=== PATIENT | female | born 1955 | race Caucasian/White ===

== ENCOUNTER 2019-11-30 22:15 | Emergency (ER) | payer MEDICARE ==
[~2019-11-30] VITALS: Ht 166.4 cm; Wt 59.1 kg
[2019-11-30 23:48] LABS: BASOPHILS % (AUTO) 0.2 % (0-1); EOSINOPHILS # (AUTO) 0.1 X10'3 (0-0.9); EOSINOPHILS % (AUTO) 1.5 % (0-6); HEMATOCRIT 41.9 % (35.0-45.0); HEMOGLOBIN 14.2 g/dl (12.0-16.0); LYMPHOCYTES # (AUTO) 2.4 X10'3 (1.1-4.8); LYMPHOCYTES % (AUTO) 26.7 % (21-51); MEAN CORPUSCULAR HEMOGLOBIN 30.7 PG (27.0-31.0); MEAN CORPUSCULAR HGB CONC 33.8 g/dL (33.0-36.5); MEAN CORPUSCULAR VOLUME 90.7 FL (78-98); MEAN PLATELET VOLUME 9.9 FL (7.4-10.4); MONOCYTES # (AUTO) 0.6 X10'3 (0-0.9); MONOCYTES % (AUTO) 6.9 % (2-12); NEUTROPHILS # (AUTO) 5.8 X10'3 (1.8-7.7); NEUTROPHILS % (AUTO) 64.7 % (42-75); PLATELET COUNT 223 X10'3 (140-440); RED BLOOD COUNT 4.61 X10'6 (4.20-5.60); RED CELL DISTRIBUTION WIDTH 14.4 % (11.5-14.5)
[2019-11-30 23:50] LABS: ALANINE AMINOTRANSFERASE 32 U/L (12-78); ALBUMIN 3.7 G/DL (3.4-5.0); ALBUMIN/GLOBULIN RATIO 1.2 (1.1-1.5); ALKALINE PHOSPHATASE 82 IU/L (46-116); ANION GAP 10 (8-16); ASPARTATE AMINO TRANSFERASE 17 U/L (10-37); BILIRUBIN,TOTAL 0.2 MG/DL (0.1-1.0); BLOOD UREA NITROGEN 19 MG/DL (7-18); BUN/CREATININE RATIO 16.5 (6.6-38.0); CALCIUM 8.7 MG/DL (8.5-10.1); CHLORIDE 108 MMOL/L (99-107); CREATININE 1.15 MG/DL (0.40-0.90); GLUCOSE 94 MG/DL (70-104); POTASSIUM 3.9 MMOL/L (3.5-5.1); SODIUM 145 MMOL/L (135-145); TOTAL CARBON DIOXIDE 26.8 MMOL/L (24-32); TOTAL PROTEIN 6.8 G/DL (6.4-8.2); eGFR 47 ML/MIN
[2019-12-01 00:33] VITALS: BP 127/72
== END 2019-12-01 00:35 | disposition home or self-care (01) ==
LOC: ER 22:16
DX: R07.89 Other chest pain (principal); Z88.1 Allergy status to other antibiotic agents
CPT/HCPCS: 36415; 71045; 80053; 84484; 85025; 93005; 99284

== ENCOUNTER 2020-09-18 08:11 | Emergency (ER) | payer MEDICARE ==
[~2020-09-18] VITALS: Ht 165.1 cm; Wt 56.4 kg
[2020-09-18] MEDS ORDERED: morphine 4 MG/ML inj SYRINge IV ONE (08:45)
[2020-09-18] MEDS ORDERED: normal saline 1000ML IV soln IVB ONE (08:45)
[2020-09-18] MEDS ORDERED: propofol 10mg/ml 20ml vial IV ONE (08:45)
[2020-09-18] MEDS ORDERED: ondansetron/PF 4mg/2ml inj IV ONE (08:45)
--- NOTE | 2020-09-18 09:44 | NUR ---
100 MG PROPOFOL GIVEN BY DR BROOKS VIA IVP FOR MODERATE SEDATION. Addendum: 09/18/20 at 1003 by RINKU CORRECTION: 70 MG PROPOFOL IVP GIVEN BY DR BROOKS.
[2020-09-18] MEDS ORDERED: HYDR-4383 PO (10:22)
[2020-09-18 11:07] VITALS: BP 116/78
== END 2020-09-18 11:09 | disposition home or self-care (01) ==
LOC: ER 08:11
DX: S52.502A Unspecified fracture of the lower end of left radius, initial encounter for closed fracture (principal); S50.02XA Contusion of left elbow, initial encounter; M54.6 Pain in thoracic spine; Z79.2 Long term (current) use of antibiotics; Z79.899 Other long term (current) drug therapy; W19.XXXA Unspecified fall, initial encounter; Y93.89 Activity, other specified; Y92.89 Other specified places as the place of occurrence of the external cause; Y99.8 Other external cause status
CPT/HCPCS: 25605; 72070; 73100; 73110; 94799; 96361; 96374; 96375; 99152; 99285; J2270; J2405; J7030; 99151

== ENCOUNTER 2020-09-30 11:12 | Day surgery (SDC) | payer MEDICARE ==
[~2020-09-30] VITALS: Ht 165.1 cm; Wt 56.3 kg
[2020-09-30] VITALS (8 sets, daily range): BP systolic 107–130; BP diastolic 54–89
[~2020-09-30 11:12] MED LIST: BUPR300T86 PO; DICL-212 PO; ESCI20TA45 PO; MULT-1085 PO; OMEG1CAP46 PO; OMEP40CA13 PO; VANCOMYCIN INJ 1000 MG in NORMAL SALINE 250ml IV.SOLN IV ONE; cefazolin/dext.iso 2gm/50ml 50 ML IV ONE; famotidine 20mg tablet PO ONE; ringers solution, lacted 1,000 ML IV SCH
[2020-09-30 12:16] LABS: BASOPHILS # (AUTO) 0.1 X10'3 (0-0.2); BASOPHILS % (AUTO) 1.1 % (0-1); EOSINOPHILS # (AUTO) 0.3 X10'3 (0-0.9); LYMPHOCYTES # (AUTO) 1.6 X10'3 (1.1-4.8); MEAN CORPUSCULAR HEMOGLOBIN 30.3 PG (27.0-31.0); MEAN CORPUSCULAR HGB CONC 33.2 g/dL (33.0-36.5); MEAN CORPUSCULAR VOLUME 91.3 FL (78-98); MEAN PLATELET VOLUME 8.9 FL (7.4-10.4); MONOCYTES # (AUTO) 0.4 X10'3 (0-0.9); NEUTROPHILS # (AUTO) 3.2 X10'3 (1.8-7.7); NEUTROPHILS % (AUTO) 57.9 % (42-75); PRE OP HEMATOCRIT 40.6 % (35.0-45.0); PRE OP HEMOGLOBIN 13.5 g/dL (12.0-16.0); PRE OP PLATELET COUNT 248 X10'3 (140-440); RED BLOOD COUNT 4.44 X10'6 (4.20-5.60); RED CELL DISTRIBUTION WIDTH 14.3 % (11.5-14.5)
[2020-09-30 12:32] LABS: ALBUMIN 3.8 G/DL (3.4-5.0); ALBUMIN/GLOBULIN RATIO 1.2 (1.1-1.5); ALKALINE PHOSPHATASE 137 IU/L (46-116); BLOOD UREA NITROGEN 15 MG/DL (7-18); BUN/CREATININE RATIO 13.9 (6.6-38.0); CALCIUM 9.5 MG/DL (8.5-10.1); CHLORIDE 106 MMOL/L (99-107); CREATININE 1.08 MG/DL (0.40-0.90); PRE OP ALT 41 U/L (30-65); PRE OP ANION GAP 8 (8-16); PRE OP AST 27 U/L (10-37); PRE OP BILIRUB, TOTAL 0.5 MG/DL (0.0-1.0); PRE OP GLUCOSE 92 MG/DL (70-104); PRE OP POTASSIUM 4.2 MMOL/L (3.4-5.1); PRE OP SODIUM 141 MMOL/L (135-145); TOTAL CARBON DIOXIDE 27.5 MMOL/L (24-32); eGFR 51 ML/MIN
[2020-09-30] MEDS ORDERED: sevoflurane 250ml liquid IH ONE (13:30)
[2020-09-30] MEDS ORDERED: MIDAZolam 5mg/5ml vial ONE (13:31)
[2020-09-30] MEDS ORDERED: fentaNYL/PF 50MCG/1 ML 2ML syringe ONE (13:31)
[2020-09-30] MEDS ORDERED: ringers solution, lacted 1,000 ML IV SCH (14:20)
[2020-09-30] MEDS ORDERED: meperidine/PF 25mg/ml syringe IV PRN ×3 (14:20)
[2020-09-30] MEDS ORDERED: ondansetron/PF 4mg/2ml inj IV PRN (14:20)
[2020-09-30] MEDS ORDERED: morphine 2 MG/ML inj. syringe IV PRN (14:20)
[2020-09-30] MEDS ORDERED: morphine 4 MG/ML inj SYRINge IV PRN (14:20)
[2020-09-30] MEDS ORDERED: proCHLORperazine 10 MG/2 ml inj IV PRN (14:20)
[2020-09-30] MEDS ORDERED: propofol inj 20 ML IV ONE (14:30)
[2020-09-30] MEDS ORDERED: LIDOcaine 2% (20mg/ml) 5ml vial ONE (14:30)
[2020-09-30] MEDS ORDERED: ondansetron/PF 4mg/2ml inj ONE (14:31)
[2020-09-30] MEDS ORDERED: dexamethasone sod phosphate 4mg/ml inj. ONE (14:36)
--- NOTE | 2020-09-30 14:46 | NUR ---
ARRIVED IN PACU VIA [facility] WITH DR LAWRENCE IN ATTENDANCE AND O2 BEING ADMINISTERED. REPORT RECEIVED. VS STABLE. PT STILL ASLEEP. RESP EASY
--- NOTE | 2020-09-30 15:23 | NUR ---
AWAKE COMFORTABLE. VS STABLE
--- NOTE | 2020-09-30 15:56 | NUR ---
UP ASSISTED WITH DRESSING. STEADY ON FEET. TO CAR VIA W/C WITHOUT INCIDENT. SLING IN PLACE LUE. REVIEWED DISCHARGE WITH PT AND . NO URGE TO VOID BEFORE DISCHARGE
== END 2020-09-30 15:56 | disposition home or self-care (01) ==
LOC: PAS 11:12
PROVIDERS: ATTEND Orthopaedic Surgery
DX: S52.552A Other extraarticular fracture of lower end of left radius, initial encounter for closed fracture (principal); F32.9 Major depressive disorder, single episode, unspecified; K21.9 Gastro-esophageal reflux disease without esophagitis; J45.909 Unspecified asthma, uncomplicated; G89.18 Other acute postprocedural pain; Z98.890 Other specified postprocedural states; Z88.0 Allergy status to penicillin; Z88.1 Allergy status to other antibiotic agents; Z87.891 Personal history of nicotine dependence; Z20.828 Contact with and (suspected) exposure to other viral communicable diseases; Z79.899 Other long term (current) drug therapy; W19.XXXA Unspecified fall, initial encounter; Y93.89 Activity, other specified; Y92.89 Other specified places as the place of occurrence of the external cause; Y99.8 Other external cause status
CPT/HCPCS: 25607; 36415; 64417; 76942; 80053; 85025; 87635; 93005; A6222; C1713; C9803; J1100; J2001; J2250; J2405; J2704; J3010; J3370; J7120; A4618; A6446; A6449; A7000

== ENCOUNTER 2021-04-03 06:18 | Day surgery (SDC) | payer MEDICARE ==
[2021-03-27 14:51] LABS: BASOPHILS # (AUTO) 0.1 X10'3 (0-0.2); BASOPHILS % (AUTO) 0.8 % (0-1); EOSINOPHILS # (AUTO) 0.3 X10'3 (0-0.9); LYMPHOCYTES # (AUTO) 2.1 X10'3 (1.1-4.8); LYMPHOCYTES % (AUTO) 31.2 % (21-51); MEAN CORPUSCULAR HEMOGLOBIN 30.8 PG (27.0-31.0); MEAN CORPUSCULAR HGB CONC 33.3 g/dL (33.0-36.5); MEAN CORPUSCULAR VOLUME 92.5 FL (78-98); MONOCYTES # (AUTO) 0.6 X10'3 (0-0.9); MONOCYTES % (AUTO) 8.4 % (2-12); NEUTROPHILS # (AUTO) 3.7 X10'3 (1.8-7.7); NEUTROPHILS % (AUTO) 55.6 % (42-75); PRE OP HEMATOCRIT 42.1 % (35.0-45.0); PRE OP PLATELET COUNT 202 X10'3 (140-440); RED BLOOD COUNT 4.55 X10'6 (4.20-5.60); RED CELL DISTRIBUTION WIDTH 13.8 % (11.5-14.5)
[2021-03-27 15:02] LABS: ALBUMIN 3.6 G/DL (3.4-5.0); ALBUMIN/GLOBULIN RATIO 1.1 (1.1-1.5); ALKALINE PHOSPHATASE 110 IU/L (46-116); BLOOD UREA NITROGEN 28 MG/DL (7-18); BUN/CREATININE RATIO 27.5 (6.6-38.0); CALCIUM 8.7 MG/DL (8.5-10.1); CHLORIDE 104 MMOL/L (99-107); CREATININE 1.02 MG/DL (0.40-0.90); PRE OP ANION GAP 9 (8-16); PRE OP AST 41 U/L (10-37); PRE OP BILIRUB, TOTAL 0.3 MG/DL (0.0-1.0); PRE OP GLUCOSE 86 MG/DL (70-104); PRE OP POTASSIUM 4.9 MMOL/L (3.4-5.1); PRE OP SODIUM 143 MMOL/L (135-145); TOTAL CARBON DIOXIDE 30.2 MMOL/L (24-32); TOTAL PROTEIN 6.8 G/DL (6.4-8.2); eGFR 54 ML/MIN
[2021-03-27 15:05] LABS: PRE OP ALT 96 U/L (30-65)
[~2021-04-03] VITALS: Ht 165.1 cm; Wt 60.3 kg
[2021-04-03] VITALS (7 sets, daily range): BP systolic 105–132; BP diastolic 67–73
[~2021-04-03 06:18] MED LIST changes: +ACET-1008 PO; +ESCI20TA39 PO; -ESCI20TA45 PO; -OMEG1CAP46 PO; -VANCOMYCIN INJ 1000 MG in NORMAL SALINE 250ml IV.SOLN IV ONE; +[UNRECOGNIZED DRUG - OTHER]; +albuterol 2.5 MG/3 ML nebule NEB ONE; +cefazolin/dext.iso 2gm/100ml IV ONE; -cefazolin/dext.iso 2gm/50ml 50 ML IV ONE
[2021-04-03] MEDS ORDERED: BUPIVAcaine/PF 2.5mg/ml (0.25%) 10ml vial ONE ×2 (06:49→09:56)
[2021-04-03] MEDS ORDERED: LIDOcaine 1% (10mg/ml) 2ml vial ONE (07:01)
[2021-04-03] MEDS ORDERED: LIDOcaine 0.5% (5mg/ml) 50ml vial ONE (07:30)
[2021-04-03] MEDS ORDERED: fentaNYL/PF 50MCG/1 ML 2ML syringe ONE (08:41)
[2021-04-03] MEDS ORDERED: midazolam 1 mg/ML 2ml injection ONE (08:41)
--- NOTE | 2021-04-03 09:49 | NUR ---
Received from OR via [facility] , accompanied by Anesthesiologist MEME and report given by Anesthesiolgist. PATIENT WITH 20G PIV IN RIGHT UE RUNNING LR AT 100. DENIES PAIN ALL FINGERS ON LEFT UE PWD WITH + CAP REFILL. DENIES PAIN AT THIS TIME. ALL FINGERS AND THUMB PWD + CAP REFILL. DECREASED SENSATION TO THUMB BUT + REFILL AND BLACHES WITH PWD NAIL BED. Addendum: 04/03/21 at 1002 by Isiah Kraus RN, RN Amended: Links added.
[2021-04-03] MEDS ORDERED: meperidine/PF 25mg/ml syringe IV PRN ×3 (09:55)
[2021-04-03] MEDS ORDERED: morphine 4 MG/ML inj SYRINge IV PRN (09:55)
[2021-04-03] MEDS ORDERED: ringers solution, lacted 1,000 ML IV SCH (09:55)
[2021-04-03] MEDS ORDERED: proCHLORperazine 10 MG/2 ml inj IV PRN (09:55)
[2021-04-03] MEDS ORDERED: morphine 2 MG/ML inj. syringe IV PRN (09:55)
[2021-04-03] MEDS ORDERED: ondansetron/PF 4mg/2ml inj IV PRN (09:55)
[2021-04-03] MEDS ORDERED: HYDROcodone/acetaminophen 10/325mg tab PO ONE (10:05)
--- NOTE | 2021-04-03 10:49 | NUR ---
ALL DISCHARGE CRITERIA HAS BEEN MET. VSS, PAIN AT A TOLERABLE LEVEL, VOIDING AND ABLE TO SAFELY AMBULATE AND TRANSFER SELF. IV TAKEN OUT WITHOUT ANY COMPLICATIONS. ALL DISCHARGE INSTRUCTIONS COVERED WITH PATIENT AND ALL QUESTIONS ANSWERED. PATIENT TAKEN OUT VIA WHEELCHAIR TO PERSONAL VEHICLE WHERE FAMILY/FRIEND DROVE PATIENT HOME Addendum: 04/03/21 at 1051 by Isiah Kraus RN, RN Amended: Links added.
== END 2021-04-03 10:53 | disposition home or self-care (01) ==
LOC: PAS 06:18
PROVIDERS: ATTEND Orthopaedic Surgery Hand Surgery
DX: S66.012A Strain of long flexor muscle, fascia and tendon of left thumb at wrist and hand level, initial encounter (principal); S66.111A Strain of flexor muscle, fascia and tendon of left index finger at wrist and hand level, initial encounter; J45.909 Unspecified asthma, uncomplicated; F32.9 Major depressive disorder, single episode, unspecified; K21.9 Gastro-esophageal reflux disease without esophagitis; Z88.1 Allergy status to other antibiotic agents; Z91.018 Allergy to other foods; Z79.899 Other long term (current) drug therapy; Z87.891 Personal history of nicotine dependence; Z98.890 Other specified postprocedural states; X58.XXXA Exposure to other specified factors, initial encounter; Y93.89 Activity, other specified; Y92.89 Other specified places as the place of occurrence of the external cause; Y99.8 Other external cause status
CPT/HCPCS: 20680; 26350; 26490; 36415; 80053; 82948; 85025; 93005; J2001; J2250; J3010; J3490; A4215; A4618; J7120

== ENCOUNTER 2024-07-04 14:14 | Emergency (ER) | payer MEDICARE ==
[~2024-07-04] VITALS: Ht 165.1 cm; Wt 55.9 kg
[~2024-07-04 14:14] MED LIST changes: +BUPR-564 PO; -BUPR300T86 PO; -OMEP40CA13 PO; +OMEP40CA21 PO; -albuterol 2.5 MG/3 ML nebule NEB ONE; -cefazolin/dext.iso 2gm/100ml IV ONE; -famotidine 20mg tablet PO ONE; -ringers solution, lacted 1,000 ML IV SCH
[2024-07-04] MEDS: LIDOcaine 1% 30ml preserv. free vial IJ STA (15:45)
[2024-07-04] MEDS: TETanus/Pertussis (Acell)/Diphther VAC/PF (Tdap-Adult) 0.5ml syringe IMVAC ONE (16:26)
[2024-07-04] MEDS ORDERED: SULF1TAB49 PO (17:15)
[2024-07-04 17:32] VITALS: BP 130/78; PULSE 78; RESP 16; TEMP 98.1; O2SAT 97
== END 2024-07-04 17:35 | disposition home or self-care (01) ==
LOC: ER 14:14
DX: S61.021A Laceration with foreign body of right thumb without damage to nail, initial encounter (principal); Z88.1 Allergy status to other antibiotic agents; Z91.018 Allergy to other foods; Z79.1 Long term (current) use of non-steroidal anti-inflammatories (NSAID); Z79.899 Other long term (current) drug therapy; X58.XXXA Exposure to other specified factors, initial encounter; Y93.89 Activity, other specified; Y92.89 Other specified places as the place of occurrence of the external cause; Y99.8 Other external cause status
CPT/HCPCS: 12001; 73130; 90715; 99283; A6402; G0008; J7030; Z7610; 90471; A6449